=== PATIENT | male | born 1990 | race African-American/Black ===

== ENCOUNTER 2024-08-19 20:50 | Emergency (ER) | payer SELFPAY ==
[2024-08-19 20:53] VITALS: BP 170/118; PULSE 89; TEMP 36.9; O2SAT 99; BMI 28.8
[2024-08-19 21:06] VITALS: O2SAT 99
--- NOTE | 2024-08-19 21:13 | ED_ITS ---
HPI - URI/Sore Throat General Chief Complaint: Upper Respiratory Infection Stated Complaint: SORE THROAT Time Seen by Provider: 08/19/24 20:54 Source: patient Limitations: no limitations History of Present Illness HPI Narrative: This 34-year-old male presents for evaluation of a sore throat. He states he has been having sinus problems for a while now indicating that he has had a lot of sinus drainage and pressure in his frontal sinuses and today developed a sore throat. He is not having difficulty breathing or swallowing. He has no chest pain or shortness of breath. He has not had a fever. No medications were taken prior to arrival. He denies any sick contacts. He has not had any nausea vomiting or diarrhea. He denies any abdominal pain or back pain. Related Data Home Medications ?Medication ?Instructions ?Recorded ?Confirmed No Known Home Medications 08/19/24 08/19/24 Allergies Allergy/AdvReac Type Severity Reaction Status Date / Time No Known Drug Allergies Allergy Verified 08/19/24 21:01 Review of Systems ROS Status of ROS 10 or more systems reviewed and unremark able except as noted in history and below PFSH PFSH Social History Little interest or pleasure in doing things: not at all Feeling down, depressed, or hopeless: not at all Exam Narrative Exam Narrative: Vital signs and Nursing Notes reviewed: Patient is afebrile with a normal pulse, pressures elevated 170/118, he is not hypoxic with pulse ox of 99% on room air General: Awake, alert, oriented, no acute distress, lying comfortably on the stretcher HEENT: Normocephalic atraumatic, mucous membranes are moist and pink, eyes are clear, normal conjunctiva, vision is grossly intact, posterior pharynx is normal in appearance no redness, peritonsillar abscess, exudate or tonsillar hypertrophy. I do not appreciate any postnasal drip. There is no swelling of the tongue, uvula or pharyngeal soft tissues. Tympanic membranes are normal bilaterally, no appreciable effusion behind the eardrums Neck: Supple, no meningeal signs, no anterior or posterior cervical lymphadenopathy Chest: Lungs are clear to auscultation with good air entry, there is no wheezing rhonchi or rales appreciated no accessory muscle use, patient is speaking in complete sentences-no chest wall tenderness to palpation CVS: Regular rate and rhythm S1-S2, no murmurs rubs or gallops, pulses are brisk and equal bilaterally ABD: Soft, nondistended, nontender, no rebound guarding or rigidity, bowel sounds are normal, no pulsatile masses appreciated Extremities: Moving all extremities, no lower extremity tenderness or swelling n oted Skin: Normal in appearance without rash,pallor, petechiae or purpura Neuro: No focal deficits Constitutional Vital Signs, click to edit/add: Last Vital Signs Temp 98.4 F 08/19/24 20:53 Pulse 89 08/19/24 20:53 Resp 18 08/19/24 20:53 BP 170/118 H 08/19/24 20:53 Pulse Ox 99 08/19/24 21:06 O2 Del Method Room Air 08/19/24 21:06 Course Vital Signs Vital signs: Vital Signs Temperature 98.4 F 08/19/24 20:53 Pulse Rate 89 08/19/24 20:53 Respiratory Rate 18 08/19/24 20:53 Blood Pressure 170/118 H 08/19/24 20:53 Pulse Oximetry 99 08/19/24 20:53 Oxygen Delivery Method Room Air 08/19/24 20:53 Temperature 98.4 F 08/19/24 20:53 Pulse Rate 89 08/19/24 20:53 Respiratory Rate 18 08/19/24 20:53 Blood Pressure 170/118 H 08/19/24 20:53 Pulse Oximetry 99 08/19/24 21:06 Oxygen Delivery Method Room Air 08/19/24 21:06 MDM - URI/Sore Throat MDM Narrative Medical decision making narrative: This 34-year-old male presents for evaluation of a sore throat and sinus pressure. The sinus pressure has been present for a period of time and the sore throat started to become more severe earlier today. He is not having difficulty breathing or swallowing. I do not appreciate any redness swelling peritonsillar abscess or exudate on his tonsils. His voice is clear. There is no swelling or fullness in the anterior neck. He has not had any fever. He has not taken any medications despite the symptoms ongoing for a period of time. His vital signs are stable with an elevated blood pressure at triage. He states that his blood pressure does get elevated when he is nervous. His lungs are clear, he does not have any GI side effects or complaints of chest pain or shortness of breath. Strep testing is negative. He was medicated with a dose of ibuprofen in the emergency department and will be discharged home with a prescription for ibuprofen and Mucinex D. He was encouraged to drink plenty of fluids and follow-up with outpatient family medicine regarding his elevated blood pressure reading. Lab Data Labs: Lab Results 08/19/24 Range/Units 21:01 Streptococcus Screen Negative Discharge Plan Discharge Chief Complaint: Upper Respiratory Infection Clinical Impression: Upper respiratory infection, Pharyngitis, Elevated blood pressure reading Patient Disposition: Home, Self-Care Time of Disposition Decision: 21:32 Condition: Good Prescriptions / Home Meds: No Action No Known Home Medications Print Language: Armenian Instructions: Pharyngitis (ED), Upper Respiratory Infection (DC), Hypertension (ED) Referrals: Physician,Non-Staff, MD [Primary Care Provider] - 1 week
[2024-08-19 21:21] LABS: Internal Control Within Normal Limits; Strep A Antigen Screen Negative
[2024-08-19] MEDS: IBUPROFEN 600 MG TABLET PO (21:34)
== END 2024-08-19 21:37 | disposition home or self-care (01) ==
PROVIDERS: Emergency Provider Emergency Medicine
DX: J02.9 Acute pharyngitis, unspecified (principal); J06.9 Acute upper respiratory infection, unspecified; R03.0 Elevated blood-pressure reading, without diagnosis of hypertension
CPT/HCPCS: 87070; 87880; 99283